=== PATIENT | female | born 1970 | race Caucasian/White ===

== ENCOUNTER 2017-04-30 13:04 | Emergency (ER) | payer OTHER, SELFPAY ==
[~2017-04-30] VITALS: Ht 160 cm; Wt 87.5 kg
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
[2017-04-30 13:47] VITALS: BP 156/82
== END 2017-04-30 13:45 | disposition home or self-care (01) ==
LOC: ER 13:04
DX: M54.5 Low back pain (principal); F17.200 Nicotine dependence, unspecified, uncomplicated; V43.52XA Car driver injured in collision with other type car in traffic accident, initial encounter; Y93.89 Activity, other specified; Y92.413 State road as the place of occurrence of the external cause; Y99.8 Other external cause status
CPT/HCPCS: 99283

== ENCOUNTER 2019-12-09 12:26 | Emergency (ER) | payer OTHER ==
[~2019-12-09] VITALS: Ht 160 cm; Wt 98.4 kg
[2019-12-09 12:35] VITALS: BP 125/79
[2019-12-09 12:49] VITALS: BP 125/79
--- NOTE | 2019-12-09 13:16 | ER.PDOC ---
General Chief Complaint: Cough/Congestion Stated Complaint: COUGH Time seen by MD: 12:40 Source: patient Exam Limitations: no limitations History of Present Illness Initial Comments Patient is complains of cough and congestion that started on Tuesday she feels like her congestion is getting worse. She admits to being exposed to second hand smoke on a daily basis and she does have allergies. She has only tried OTC Aleyda Warren cough and cold with no relief. Severity: mild Associated Symptoms: runny nose, sore throat, cough Allergies: Coded Allergies: No Known Allergies (Unverified , 04/30/17) Constitutional: fever, malaise EENTM: nose congestion Respiratory: cough Cardiovascular: no symptoms reported Gastrointestinal: no symptoms reported Genitourinary: no symptoms reported Musculoskeletal: no symptoms reported Skin: no symptoms reported Psychiatric/Neurological: no symptoms reported Endocrine: no symptoms reported Hematologic/Lymphatic: no symptoms reported Past Medical History Medical History: no pertinent history Social History Alcohol Use: none Drug Use: none Physical Exam General Appearance: alert Eye: eyes nml inspection, PERRL Ear: ear nml, TM erythema Nose: nose nml, rhinorrhea, mucosal edema Throat: pharynx nml, airway nml Neck: nml inspection, supple Respiratory: no resp.distress, breath sounds nml Abdomen: non-tender CVS: reg rate & rhythm, heart sounds nml Skin: color nml, no rash, warm/dry Extremities: non-tender NEURO/PSYCH: oriented x 3, motor nml, sensation nml, mood/affect nml Results/Orders Results/Orders Orders - KRISS VENTURA NP Influenza A&B (12/09/19 12:41) Strep Screen (12/09/19 12:41) Xr Chest 2v (12/09/19 13:33) Vital Signs Date Time Temp Pulse Resp B/P (MAP) Pulse Ox O2 Delivery O2 Flow Rate FiO2 12/09/19 13:55 128/78 (95) 12/09/19 12:49 99.4 97 20 12/09/19 12:49 99.4 97 20 125/79 (94) 100 12/09/19 12:35 99.4 97 20 100 Laboratory Tests Test 12/09/19 12:41 Influenza Type A Antigen NEGATIVE (NEG) Influenza B Immunofluorescence NEGATIVE (NEG) Group A Streptococcus Screen NEGATIVE (NEGATIVE) Progress Progress Patient was informed of negative strep and flu results and the next step in the process is a CXR then a call to the health department. 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 Rechecked patients temperature orally is 98.8 at 1330. 1400 [facility] contacted [phone] spoke with Zenaida at 1400 reported patient was afebrile at 1330 temp of 98.8, No cough, No SOB, Flu and Strep were negative and CXR was negative. Zenaida stated they will not issue a number for testing the patient does not meet criteria. Zenaida stated there is an option to test though the patient will pay out of pocket for this testing at [employer] or [employer]. Patient declined testing at this time. Departure Time of Disposition: 14:16 Disposition: 01 HOME, SELF-CARE Impression: Primary Impression: Congestion of nasal sinus Condition: Stable Referrals: PCP,UNKNOWN (PCP) PRIMARY CARE PROVIDER Additional Instructions: Continue to alternate Tylenol and Motrin for fever and pain Follow up with your Primary Care Provider in the next 1-2 days If symptoms become worse return to the ER Duration or Time Spent with Pa: 20 min KRISS VENTURA NP Dec 09, 2019 13:16
--- NOTE | 2019-12-09 13:52 | DIREP ---
PROCEDURE:CHEST 2 VIEWS COMPARISON:None. INDICATIONS:cough congestion FINDINGS: LUNGS/PLEURA:No significant pulmonary parenchymal abnormalities. No effusions. VASCULATURE:Normal. Unremarkable pulmonary vasculature. CARDIAC:Normal. No cardiac silhouette abnormality or cardiomegaly. MEDIASTINUM:Normal. No visible mass or adenopathy. BONES:Normal. No fracture or visible bony lesion. OTHER:Negative. CONCLUSION:No acute cardiopulmonary findings. Dictated by: Markos Guevara M.D. on 12/09/2019 at 01:51 PM
[2019-12-09 13:55] VITALS: BP 128/78
== END 2019-12-09 14:24 | disposition home or self-care (01) ==
LOC: ER 12:26
DX: R09.81 Nasal congestion (principal); R05 Cough
CPT/HCPCS: 71046; 87070; 87804; 87880; 99284